=== PATIENT | female | born 1960 | race Caucasian/White ===

== ENCOUNTER 2023-05-25 02:01 | Emergency (ER) | payer MEDICAID ==
[~2023-05-25] VITALS: Ht 152.4 cm; Wt 79.0 kg
[2023-05-25 02:17] VITALS: BP 150/89; TEMP 98.5; O2SAT 99
[2023-05-25 02:22] VITALS: PULSE 91; RESP 18
[2023-05-25] MEDS ORDERED: ACET-2708 MT (06:29)
== END 2023-05-25 10:16 | disposition home or self-care (01) ==
LOC: ER 02:15
DX: S09.90XA Unspecified injury of head, initial encounter (principal); M54.2 Cervicalgia; M25.562 Pain in left knee; M25.561 Pain in right knee; W18.39XA Other fall on same level, initial encounter; Y93.89 Activity, other specified; Y92.89 Other specified places as the place of occurrence of the external cause; Y99.8 Other external cause status
CPT/HCPCS: 70486; 73060; 73560; 99284

== ENCOUNTER 2023-06-12 23:05 | Emergency (ER) | payer MEDICAID ==
[~2023-06-12] VITALS: Ht 154.9 cm; Wt 86.0 kg
[~2023-06-12 23:05] MED LIST: ACET-2708 MT
[2023-06-12 23:08] VITALS: BP 173/82; PULSE 62; RESP 16; TEMP 98.1; O2SAT 97
[2023-06-13] MEDS: MAGNESIUM/ALUMINUM HYDROXIDE/SIMETHICONE 30ML UDC PO ONE (01:15)
== END 2023-06-13 02:38 | disposition home or self-care (01) ==
LOC: ER 23:15
DX: R09.89 Other specified symptoms and signs involving the circulatory and respiratory systems (principal); E11.9 Type 2 diabetes mellitus without complications; Z90.49 Acquired absence of other specified parts of digestive tract
CPT/HCPCS: 71045; 99283

== ENCOUNTER 2023-06-29 20:43 | Emergency (ER) | payer MEDICAID, OTHER ==
[~2023-06-29] VITALS: Ht 148.6 cm; Wt 82.5 kg
[2023-06-29 20:58] VITALS: O2SAT 96
[2023-06-29 23:48] LABS: BASOPHILS % 0.5 % (0.0-2.0); EOSINOPHILS % 1.3 % (0.0-5.0); HEMATOCRIT. 40.1 % (36.0-48.0); HEMOGLOBIN. 13.7 g/dL (12.0-16.0); LYMPHOCYTES % 14.7 % (20.0-50.0); MEAN CORPUSCULAR HEMOGLOBIN 29.3 pg (28.0-32.0); MEAN CORPUSCULAR HGB CONC 34.1 g/dL (31.0-37.0); MONOCYTES % 8.2 % (2.0-8.0); NEUTROPHILS % 75.3 % (40.0-76.0); PLATELET 290 x1000/uL (130-400); RED BLOOD CELL COUNT 4.66 mill/uL (4.2-5.4); RED CELL DISTRIBUTION WIDTH 13.3 % (11.6-14.6); WHITE BLOOD COUNT 11.3 x1000/uL (4.5-11.0)
[2023-06-29 23:55] LABS: CHLORIDE 104 mEq/L (98-107); POTASSIUM 3.7 mEq/L (3.5-5.1); SODIUM 137 mEq/L (136-145)
[2023-06-29 23:56] LABS: CALCIUM 8.8 mg/dL (8.7-10.4); CARBON DIOXIDE 23 mEq/L (21-32)
[2023-06-30 00:01] LABS: CREATININE 0.5 mg/dL (0.6-1.0); GLUCOSE 157 mg/dL (70-105); UREA NITROGEN BLOOD 11 mg/dL (9-23)
[2023-06-30 00:03] LABS: ALANINE AMINOTRANSFERASE 16 IU/L (10-49); ALBUMIN 4.4 g/dL (3.2-4.8); ASPARTATE AMINOTRANSFERASE 18 IU/L (<34); BILIRUBIN TOTAL 0.5 mg/dL (0.1-1.0); PROTEIN TOTAL 8.5 g/dL (6.0-8.3)
[2023-06-30 00:08] LABS: TROPONIN I HIGH SENSITIVITY < 4 ng/L (3.0-34)
[2023-06-30] MEDS ORDERED: AMOX1TAB16 MT (02:00)
[2023-06-30] MEDS ORDERED: IBUP-2029 MT (02:00)
[2023-06-30] MEDS ORDERED: P50 MT (02:00)
[2023-06-30 02:25] VITALS: TEMP 99.2
[2023-06-30 02:26] VITALS: BP 138/73; PULSE 117; RESP 19
[2023-06-30] MEDS: IBUPROFEN 600MG TABLET PO ONE (02:26)
== END 2023-06-30 02:32 | disposition home or self-care (01) ==
LOC: ER 20:43
DX: J18.9 Pneumonia, unspecified organism (principal); E11.9 Type 2 diabetes mellitus without complications; Z79.899 Other long term (current) drug therapy
CPT/HCPCS: 36415; 71045; 80053; 83880; 84484; 85025; 93005; 93970; 99285

== ENCOUNTER 2023-08-01 15:16 | Inpatient (IN) | payer MEDICAID, OTHER ==
[~2023-08-01] VITALS: Ht 160 cm; Wt 80.3 kg
[~2023-08-01 15:16] MED LIST changes: +AMOX1TAB16 MT; +IBUP-2029 MT; +P50 MT
[2023-08-01] MEDS: IBUPROFEN 600MG TABLET PO STA (15:58)
[2023-08-01 17:16] LABS: CLARITY URINE CLOUDY (CLEAR); COLOR URINE YELLOW (YELLOW); GLUCOSE URINE 3+ (NEGATIVE); KETONES URINE NEGATIVE (NEGATIVE); LEUKOCYTE ESTERASE URINE NEGATIVE (NEGATIVE); NITRITE URINE NEGATIVE (NEGATIVE); OCCULT BLOOD URINE NEGATIVE (NEGATIVE); PH URINE 5.5 (4.5-8.0); PROTEIN URINE NEGATIVE (NEGATIVE); SPECIFIC GRAVITY URINE 1.044 (1.005-1.030); UROBILINOGEN URINE 0.2 E.U./dL (0.2-1.0)
[2023-08-01 17:20] LABS: BASOPHILS % 0.2 % (0.0-2.0); CHLORIDE 108 mEq/L (98-107); EOSINOPHILS % 1.9 % (0.0-5.0); HEMATOCRIT. 42.4 % (36.0-48.0); HEMOGLOBIN. 14.4 g/dL (12.0-16.0); LYMPHOCYTES % 8.6 % (20.0-50.0); MEAN CORPUSCULAR HEMOGLOBIN 28.9 pg (28.0-32.0); MONOCYTES % 4.2 % (2.0-8.0); NEUTROPHILS % 85.1 % (40.0-76.0); PLATELET 290 x1000/uL (130-400); POTASSIUM 3.9 mEq/L (3.5-5.1); RED BLOOD CELL COUNT 4.99 mill/uL (4.2-5.4); RED CELL DISTRIBUTION WIDTH 13.6 % (11.6-14.6); SODIUM 141 mEq/L (136-145); WHITE BLOOD COUNT 13.1 x1000/uL (4.5-11.0)
[2023-08-01 17:21] LABS: CARBON DIOXIDE 27 mEq/L (21-32)
[2023-08-01 17:22] LABS: CALCIUM 9.2 mg/dL (8.7-10.4)
[2023-08-01] MEDS: SODIUM CHLORIDE 0.9% 1,000 ML IV ONE ×2 (17:23→20:15)
[2023-08-01] MEDS: ONDANSETRON HCL 4MG/2ML INJ IV STA (17:23)
[2023-08-01 17:26] LABS: CREATININE 0.7 mg/dL (0.6-1.0); GLUCOSE 186 mg/dL (70-105)
[2023-08-01 17:27] LABS: UREA NITROGEN BLOOD 15 mg/dL (9-23)
[2023-08-01 17:57] LABS: BACTERIA URINE 1+; RBC URINE 0-2 /hpf (0-2); SQUAMOUS EPITHELIAL CELL URINE 1+ /lpf (RARE/1+)
[2023-08-01 17:58] LABS: AMORPHOUS SEDIMENT URINE 1+ /lpf; WBC URINE 0-2 /hpf (0-2)
[2023-08-01 19:08] LABS: TROPONIN I HIGH SENSITIVITY < 4 ng/L (3.0-34)
[2023-08-01 19:12] LABS: THYROID STIMULATING HORMONE 0.42 uIU/mL (0.55-4.78)
[2023-08-01 19:47] LABS: *AMPHETAMINES SCREEN URINE NEGATIVE (NEGATIVE); *BARBITURATES SCREEN URINE NEGATIVE (NEGATIVE); *BENZODIAZEPINES SCREEN URINE NEGATIVE (NEGATIVE); *COCAINE SCREEN URINE NEGATIVE (NEGATIVE); CANNABINOID URINE SCREEN NEGATIVE (NEGATIVE); ECSTASY MDMA SCREEN URINE NEGATIVE (NEGATIVE); METHADONE URINE SCREEN NEGATIVE (NEGATIVE); OPIATES URINE SCREEN NEGATIVE (NEGATIVE); PHENCYCLIDINE URINE SCREEN NEGATIVE (NEGATIVE)
[2023-08-01] MEDS ORDERED: IBUP-2029 MT (21:02)
[2023-08-01] MEDS ORDERED: IOHEXOL-350 100 ML BOTTLE ONE (22:28)
[2023-08-02] VITALS: BP 120/65; PULSE 114; RESP 18; RESP 19; TEMP 98.1
[2023-08-02 04:00] VITALS: BP 122/75; PULSE 96; RESP 18; TEMP 98
[2023-08-02 06:38] LABS: BASOPHILS % 0.4 % (0.0-2.0); EOSINOPHILS % 1.8 % (0.0-5.0); HEMATOCRIT. 39.7 % (36.0-48.0); HEMOGLOBIN. 13.5 g/dL (12.0-16.0); LYMPHOCYTES % 16.1 % (20.0-50.0); MEAN CORPUSCULAR HEMOGLOBIN 28.9 pg (28.0-32.0); MEAN PLATELET VOLUME 8.5 fl (7.4-10.4); MONOCYTES % 6.3 % (2.0-8.0); NEUTROPHILS % 75.4 % (40.0-76.0); PLATELET 248 x1000/uL (130-400); RED BLOOD CELL COUNT 4.67 mill/uL (4.2-5.4); RED CELL DISTRIBUTION WIDTH 13.7 % (11.6-14.6); WHITE BLOOD COUNT 7.3 x1000/uL (4.5-11.0)
[2023-08-02 07:12] LABS: CALCIUM 8.5 mg/dL (8.7-10.4); CARBON DIOXIDE 23 mEq/L (21-32); CHLORIDE 111 mEq/L (98-107); POTASSIUM 3.4 mEq/L (3.5-5.1); SODIUM 143 mEq/L (136-145)
[2023-08-02 07:18] LABS: GLUCOSE 135 mg/dL (70-105); LDL CHOLESTEROL 100 mg/dL (5-100); TRIGLYCERIDE 116 mg/dL (0-150); UREA NITROGEN BLOOD 10 mg/dL (9-23)
[2023-08-02 07:20] LABS: CHOLESTEROL 152 mg/dL (<200); HDL CHOLESTEROL 38 mg/dL (>65)
[2023-08-02 07:25] LABS: CREATININE 0.4 mg/dL (0.6-1.0)
[2023-08-02 08:00] VITALS: BP 132/80; PULSE 89; RESP 18; TEMP 98.2
[2023-08-02] MEDS: ASPIRIN 81MG TABLET PO SCH (08:33)
[2023-08-02 11:30] LABS: TROPONIN I HIGH SENSITIVITY < 4 ng/L (3.0-34)
[2023-08-02 12:00] VITALS: BP 120/74; PULSE 97; RESP 18; TEMP 98.1
[2023-08-02] MEDS ORDERED: ONDANSETRON HCL 4MG/2ML INJ IV PRN (12:00)
[2023-08-02] MEDS ORDERED: ACETAMINOPHEN 325MG TABLET PO PRN (12:00)
[2023-08-02] MEDS ORDERED: CLONIDINE 0.1MG TABLET PO PRN (12:00)
[2023-08-02] MEDS ORDERED: DOCUSATE SODIUM 100MG CAPSULE PO PRN (12:00)
[2023-08-02] MEDS ORDERED: IPRATROPIUM/ALBUTEROL 0.5-3(2.5)MG/3ML NEB HHN PRN (12:00)
[2023-08-02] MEDS ORDERED: NALOXONE HCL 0.4MG/ML VIAL IV PRN (12:15)
[2023-08-02] MEDS: POTASSIUM CHLORIDE 20MEQ TABLET SR PO NR (12:24)
[2023-08-02 16:00] VITALS: BP 133/78; PULSE 99; RESP 20; TEMP 98.2
[2023-08-02 20:30] VITALS: BP 135/68; PULSE 102; RESP 20; TEMP 98.6
[2023-08-03] MEDS: HYDROCODONE/ACETAMINOPHEN 5/325MG TABLET PO PRN (00:29)
[2023-08-03 04:45] VITALS: BP 113/71; PULSE 80; RESP 20; TEMP 97.9
[2023-08-03 08:00] VITALS: BP 130/82; PULSE 95; RESP 20; TEMP 97.9
[2023-08-03 12:00] VITALS: BP 113/70; PULSE 88; RESP 18; TEMP 97.9
[2023-08-03 16:00] VITALS: BP 121/74; PULSE 85; RESP 20; TEMP 97.9
[2023-08-03 20:00] VITALS: BP 121/80; PULSE 85; RESP 18; TEMP 97.5
[2023-08-03] MEDS: ACETAMINOPHEN 325MG TABLET PO PRN (23:01)
[2023-08-04] VITALS: BP 121/78; PULSE 86; RESP 19; TEMP 97.7
[2023-08-04 04:00] VITALS: BP 137/74; PULSE 81; RESP 19; TEMP 98
[2023-08-04 08:00] VITALS: BP 130/78; PULSE 80; RESP 19; TEMP 98
[2023-08-04 12:00] VITALS: BP 126/82; PULSE 78; RESP 19; TEMP 98.2
[2023-08-04 16:00] VITALS: BP 122/76; PULSE 74; RESP 19; TEMP 98
[2023-08-04 20:00] VITALS: BP 123/67; PULSE 74; RESP 18; TEMP 97.8
[2023-08-05] VITALS: PULSE 82; RESP 18; TEMP 98.4
[2023-08-05 04:00] VITALS: BP 119/64; PULSE 82; RESP 18; TEMP 98.2
[2023-08-05 08:00] VITALS: BP 119/73; PULSE 75; RESP 21; TEMP 97.2
[2023-08-05 12:00] VITALS: BP 109/60; PULSE 76; RESP 20; TEMP 97.4
[2023-08-05 20:00] VITALS: BP 144/82; PULSE 80; RESP 18; TEMP 99
[2023-08-06] VITALS: BP 138/79; PULSE 78; RESP 18; TEMP 98.7
[2023-08-06 04:00] VITALS: BP 107/63; PULSE 92; RESP 18; TEMP 96.4
[2023-08-06 08:00] VITALS: BP 113/67; PULSE 84; RESP 20; TEMP 96.4
[2023-08-06] MEDS ORDERED: METF-416 MT (10:27)
[2023-08-06] MEDS ORDERED: DEXTROSE 50% WATER 50ML SYRINGE IV PRN (10:30)
[2023-08-06 12:00] VITALS: BP 115/72; PULSE 85; RESP 20; TEMP 96.4
[2023-08-06] MEDS ORDERED: BLOOD SUGAR DIAGNOSTIC STRIP TEST SCH (12:20)
[2023-08-06] MEDS ORDERED: INSULIN LISPRO 100 UNITS/ML SUBCUT SCH (12:50)
[2023-08-06 13:21] VITALS: BP 115/72; PULSE 85; TEMP 96.4; O2SAT 98
== END 2023-08-06 14:20 | disposition home or self-care (01) | DRG 351 ==
LOC: ER 15:16 → EDBEDREQTM 21:22 → EDBEDREQ 21:22 → 8WST 22:19 → 6EST 08-03 20:25
PROVIDERS: ADMIT Internal Medicine; ATTEND Internal Medicine
DX: S49.91XA Unspecified injury of right shoulder and upper arm, initial encounter (principal); D72.829 Elevated white blood cell count, unspecified; E11.65 Type 2 diabetes mellitus with hyperglycemia; E66.01 Morbid (severe) obesity due to excess calories; E87.6 Hypokalemia; R00.0 Tachycardia, unspecified; I10 Essential (primary) hypertension; Z59.00 Homelessness unspecified; Z90.49 Acquired absence of other specified parts of digestive tract; Z79.4 Long term (current) use of insulin; Z68.31 Body mass index [BMI] 31.0-31.9, adult
CPT/HCPCS: 36415; 71045; 71275; 73030; 80048; 80061; 80305; 81003; 82164; 83036; 83605; 84443; 84481; 84484; 85025; 85379; 93005; 93306; 97165; 97530; 97535; 99285; J2405; J7030; Q9967

== ENCOUNTER 2023-12-11 15:31 | Emergency (ER) | payer MEDICAID, OTHER ==
[~2023-12-11] VITALS: Ht 154.9 cm; Wt 58.0 kg
[~2023-12-11 15:31] MED LIST changes: -AMOX1TAB16 MT; -IBUP-2029 MT; +METF-416 MT; -P50 MT
[2023-12-11 15:44] VITALS: TEMP 98; O2SAT 97
[2023-12-11 19:52] VITALS: BP 128/83; PULSE 84; RESP 18; O2SAT 100
== END 2023-12-11 20:32 | disposition home or self-care (01) ==
LOC: ER 15:31
DX: R76.11 Nonspecific reaction to tuberculin skin test without active tuberculosis (principal); I10 Essential (primary) hypertension; E11.9 Type 2 diabetes mellitus without complications; Z00.00 Encounter for general adult medical examination without abnormal findings; Z90.49 Acquired absence of other specified parts of digestive tract
CPT/HCPCS: 71046; 99283